=== PATIENT | female | born 1945 | race Caucasian/White ===

== ENCOUNTER 2018-06-07 22:13 | Inpatient (IN) ==
[2018-06-07] MEDS ORDERED: SODIUM CHLORIDE 0.9% 1,000 ML IV STA (22:40)
[2018-06-07 23:07] LABS: Basophils % 0.2 % (0.0-0.8); Eosinophils # 0.1 10*3/uL (0.0-0.87); Eosinophils % 1.1 % (0.00-10.9); Hematocrit 36.8 VOL% (35.7-47.0); Hemoglobin 12.5 GM/DL (12.0-16.0); Immature Granulocytes % 0.4 %; Immature Granulocytes Absolute 0.04 #; Lymphocytes # 1.6 10*3/uL (1.4-4.0); Lymphocytes % 17.4 % (21.3-54.2); Mean Corpuscular Hemoglobin 31 PG (27-34); Mean Corpuscular Volume 91.3 FL (87-102); Mean Platelet Volume 9.3 FL (9.6-12.0); Monocytes % 11.1 % (1.7-12.7); Neutrophils # 6.5 10*3/uL (1.4-7.4); Neutrophils % 69.8 % (38.7-73.9); Platelet Count 168 T/CUMM (130-400); Red Blood Count 4.03 MC/CUMM (3.8-5.5); Red Cell Distribution Width 13.2 % (9.3-17.3); White Blood Count 9.3 T/CUMM (4-12)
[2018-06-07 23:37] LABS: Alanine Aminotransferase 13 U/L (13-56); Albumin 3.2 G/DL (3.4-5.0); Alkaline Phosphatase 62 U/L (45-117); Aspartate Amino Transferase 20 U/L (0-37); Blood Urea Nitrogen 14 MG/DL (7-18); Calcium 8.8 MG/DL (8.5-10.1); Glucose 154 MG/DL (74-106); Osmolality,Calculated 280.5 MOS/KG (273-304); Potassium 2.9 MMOL/L (3.5-5.1); Sodium 139 MMOL/L (136-145); Total Protein 7.6 G/DL (6.4-8.3)
[2018-06-08 00:50] LABS: Apearance,Urine CLOUDY (Clear); Bacteria,Urine Moderate /HPF (Few); Bilirubin,Urine Negative (Negative); Blood, Urine Moderate mg/dL (Negative); Glucose,Urine (UA) Negative (Negative); Hyaline Casts,Urine 47 /LPF (0-3); Ketones,Urine 5 mg/dL (Negative); Mucus,Urine Moderate /LPF (Occasional); Nitrite,Urine Negative (Negative); Protein,Urine 30 MG/DL; RBC,Urine 16 /HPF (0-4); Squamous Epithelial Cell,Urine Occasional /HPF (0-10); Urine Color Amber (Yellow); Urine Specific Gravity 1.016 (1.001-1.035); WBC,Urine 258 /HPF (0-6)
[2018-06-08] MEDS ORDERED: cefTRIAXone 1,000 MG in SODIUM CHLORIDE 0.9% 100 ML IV STA (00:58)
[2018-06-08] MEDS ORDERED: ONDANSETRON 4 MG/2 ML VIAL IV PRN (01:37)
[2018-06-08] MEDS ORDERED: MAGNESIUM SULF RIDER 1 GM in PREMIX 1 EACH IV ONE (02:30)
[2018-06-08] MEDS: SODIUM CHLORIDE 0.9% 1,000 ML IV SCH ×3 (03:32→18:30)
[2018-06-08] MEDS: POTASSIUM CHLORIDE RIDER 10 MEQ in PREMIX 1 EACH IV SCH ×5 (03:34→12:10)
[2018-06-08 03:46] LABS: Barbiturates Screen,Urine Negative (Negative); Benzodiazepines Screen,Urine Negative (Negative); Cannabinoid Screen,Urine Negative (Negative); Opiate Screen,Urine Negative (Negative); Phencyclidine Screen,Urine Negative (Negative)
[2018-06-08 03:55] LABS: Free T4 (Free Thyroxine) 1.35 NG/DL (0.76-1.46)
[2018-06-08 05:52] LABS: Basophils % 0.2 % (0.0-0.8); Eosinophils # 0.2 10*3/uL (0.0-0.87); Eosinophils % 1.8 % (0.00-10.9); Hematocrit 33.5 VOL% (35.7-47.0); Hemoglobin 11.2 GM/DL (12.0-16.0); Immature Granulocytes % 0.4 %; Immature Granulocytes Absolute 0.03 #; Lymphocytes % 24.2 % (21.3-54.2); Mean Corpuscular HGB Conc 33.4 GM/DL (32-36); Mean Corpuscular Hemoglobin 31 PG (27-34); Mean Corpuscular Volume 92.5 FL (87-102); Mean Platelet Volume 9.5 FL (9.6-12.0); Monocytes # 0.9 10*3/uL (0.11-0.8); Monocytes % 10.9 % (1.7-12.7); Neutrophils # 5.2 10*3/uL (1.4-7.4); Neutrophils % 62.5 % (38.7-73.9); Platelet Count 149 T/CUMM (130-400); Red Blood Count 3.62 MC/CUMM (3.8-5.5); Red Cell Distribution Width 12.9 % (9.3-17.3); White Blood Count 8.3 T/CUMM (4-12)
[2018-06-08 06:02] LABS: Calcium 8.4 MG/DL (8.5-10.1); Osmolality,Calculated 281.1 MOS/KG (273-304)
[2018-06-08] MEDS: PANTOPRAZOLE 40 MG TABLET PO SCH (09:27)
[2018-06-08] MEDS: ENOXAPARIN 40 MG/0.4 ML SYRINGE SUBCUT SCH (09:27)
[2018-06-08] MEDS: MONTELUKAST 10 MG TABLET PO SCH (09:28)
[2018-06-08] MEDS: PROPRANOLOL LA 80 MG CAPSULE PO SCH (12:28)
[2018-06-09] MEDS: SODIUM CHLORIDE 0.9% 1,000 ML IV SCH (02:15)
[2018-06-09] MEDS: cefTRIAXone 1,000 MG in SYRINGE 1 EACH IV SCH (02:47)
[2018-06-09 04:50] LABS: Calcium 8.3 MG/DL (8.5-10.1); Osmolality,Calculated 279.1 MOS/KG (273-304); Potassium 3.6 MMOL/L (3.5-5.1)
[2018-06-09] MEDS: MONTELUKAST 10 MG TABLET PO SCH (08:08)
[2018-06-09] MEDS: LISINOPRIL 10 MG TABLET PO SCH (08:08)
[2018-06-09] MEDS: PROPRANOLOL LA 80 MG CAPSULE PO SCH (08:08)
[2018-06-09] MEDS: MAGNESIUM CHLORIDE 64 MG TABLET PO SCH (08:08)
[2018-06-09] MEDS: ENOXAPARIN 40 MG/0.4 ML SYRINGE SUBCUT SCH (08:08)
[2018-06-09] MEDS: POTASSIUM CHLORIDE 20 MEQ TABLET PO SCH (08:08)
[2018-06-09] MEDS: PANTOPRAZOLE 40 MG TABLET PO SCH (08:08)
[2018-06-09] MEDS ORDERED: TUBERCULIN SKIN TEST 0.1 ML SYRINGE INTRADERM ONE (12:31)
[2018-06-10] MEDS: cefTRIAXone 1,000 MG in SYRINGE 1 EACH IV SCH (03:09)
[2018-06-10 04:50] LABS: Calcium 8.6 MG/DL (8.5-10.1); Osmolality,Calculated 276.4 MOS/KG (273-304); Potassium 3.2 MMOL/L (3.5-5.1)
[2018-06-10] MEDS ORDERED: POTASSIUM CHLORIDE 10 MEQ TABLET PO ONE (08:30)
[2018-06-10] MEDS: ENOXAPARIN 40 MG/0.4 ML SYRINGE SUBCUT SCH (08:31)
[2018-06-10] MEDS: POTASSIUM CHLORIDE 20 MEQ TABLET PO SCH (08:32)
[2018-06-10] MEDS: PANTOPRAZOLE 40 MG TABLET PO SCH (08:32)
[2018-06-10] MEDS: MAGNESIUM CHLORIDE 64 MG TABLET PO SCH (08:32)
[2018-06-10] MEDS: LISINOPRIL 10 MG TABLET PO SCH ×2 (08:32→20:32)
[2018-06-10] MEDS: MONTELUKAST 10 MG TABLET PO SCH (08:32)
[2018-06-10] MEDS: PROPRANOLOL LA 80 MG CAPSULE PO SCH (08:36)
[2018-06-10] MEDS ORDERED: POTASSIUM CHLORIDE 20 MEQ/15 ML UDCUP PO ONE (09:07)
[2018-06-10] MEDS: ACETAMINOPHEN 325 MG TABLET PO PRN ×2 (09:52→20:32)
[2018-06-10] MEDS: POTASSIUM CHLORIDE 20 MEQ/15 ML UDCUP PO SCH (09:52)
[2018-06-10] MEDS ORDERED: ALBUTEROL 2.5 MG/3 ML NEB RESP TX PRN (15:45)
[2018-06-10] MEDS: DULoxetine 30 MG CAPSULE PO SCH (20:32)
[2018-06-10] MEDS: BENZTROPINE 1 MG TABLET PO SCH (20:32)
[2018-06-11] MEDS: cefTRIAXone 1,000 MG in SYRINGE 1 EACH IV SCH (02:00)
[2018-06-11 06:08] LABS: Calcium 8.9 MG/DL (8.5-10.1); Osmolality,Calculated 274.5 MOS/KG (273-304); Potassium 3.3 MMOL/L (3.5-5.1)
[2018-06-11 06:10] LABS: Calcium 8.9 MG/DL (8.5-10.1); Osmolality,Calculated 274.5 MOS/KG (273-304); Potassium 3.3 MMOL/L (3.5-5.1)
[2018-06-11] MEDS ORDERED: POTASSIUM CHLORIDE 20 MEQ/15 ML UDCUP PO ONE (08:16)
[2018-06-11] MEDS: ENOXAPARIN 40 MG/0.4 ML SYRINGE SUBCUT SCH (08:39)
[2018-06-11] MEDS: MAGNESIUM CHLORIDE 64 MG TABLET PO SCH (08:40)
[2018-06-11] MEDS: PANTOPRAZOLE 40 MG TABLET PO SCH (08:40)
[2018-06-11] MEDS: MONTELUKAST 10 MG TABLET PO SCH (08:40)
[2018-06-11] MEDS: LISINOPRIL 10 MG TABLET PO SCH ×2 (08:40→21:25)
[2018-06-11] MEDS: OXYBUTYNIN XL 5 MG TABLET PO SCH (08:40)
[2018-06-11] MEDS: POTASSIUM CHLORIDE 20 MEQ/15 ML UDCUP PO SCH (08:40)
[2018-06-11] MEDS ORDERED: PROPRANOLOL LA 80 MG CAPSULE PO SCH (09:00)
[2018-06-11] MEDS: PROPRANOLOL LA 80 MG CAPSULE PO SCH (10:00)
[2018-06-11] MEDS ORDERED: TEMAZEPAM 15 MG CAPSULE PO SCH (21:00)
[2018-06-11] MEDS: DULoxetine 30 MG CAPSULE PO SCH (21:25)
[2018-06-11] MEDS: BENZTROPINE 1 MG TABLET PO SCH (21:27)
[2018-06-12] MEDS: cefTRIAXone 1,000 MG in SYRINGE 1 EACH IV SCH (02:13)
[2018-06-12] MEDS: ACETAMINOPHEN 325 MG TABLET PO PRN ×2 (03:03→11:58)
[2018-06-12 05:23] LABS: Calcium 8.6 MG/DL (8.5-10.1); Osmolality,Calculated 275.5 MOS/KG (273-304); Potassium 3.3 MMOL/L (3.5-5.1)
[2018-06-12] MEDS: PANTOPRAZOLE 40 MG TABLET PO SCH (09:13)
[2018-06-12] MEDS: POTASSIUM CHLORIDE 20 MEQ/15 ML UDCUP PO SCH (09:13)
[2018-06-12] MEDS: MONTELUKAST 10 MG TABLET PO SCH (09:13)
[2018-06-12] MEDS: ENOXAPARIN 40 MG/0.4 ML SYRINGE SUBCUT SCH (09:13)
[2018-06-12] MEDS: MAGNESIUM CHLORIDE 64 MG TABLET PO SCH (09:13)
[2018-06-12] MEDS: PROPRANOLOL LA 80 MG CAPSULE PO SCH (09:14)
[2018-06-12] MEDS: LISINOPRIL 10 MG TABLET PO SCH ×2 (09:14→20:34)
[2018-06-12] MEDS: OXYBUTYNIN XL 5 MG TABLET PO SCH (09:14)
[2018-06-12] MEDS ORDERED: POTASSIUM CHLORIDE 20 MEQ/15 ML UDCUP PO ONE (09:58)
[2018-06-12] MEDS ORDERED: MAGNESIUM SULF RIDER 2 GM in PREMIX 1 EACH IV ONE (09:58)
[2018-06-12] MEDS: AMOXICILLIN/CLAV 875 MG TABLET PO SCH ×2 (11:50→20:34)
[2018-06-12] MEDS: DULoxetine 30 MG CAPSULE PO SCH (20:33)
[2018-06-12] MEDS: BENZTROPINE 1 MG TABLET PO SCH (20:34)
[2018-06-12] MEDS ORDERED: LORazepam 1 MG TABLET PO SCH (21:00)
[2018-06-13 05:40] LABS: Calcium 8.3 MG/DL (8.5-10.1); Osmolality,Calculated 276.5 MOS/KG (273-304); Potassium 3.4 MMOL/L (3.5-5.1)
[2018-06-13] MEDS: MAGNESIUM CHLORIDE 64 MG TABLET PO SCH (10:00)
[2018-06-13] MEDS: POTASSIUM CHLORIDE 20 MEQ/15 ML UDCUP PO SCH (10:00)
[2018-06-13] MEDS: LISINOPRIL 10 MG TABLET PO SCH ×2 (10:00→21:05)
[2018-06-13] MEDS: ENOXAPARIN 40 MG/0.4 ML SYRINGE SUBCUT SCH (10:00)
[2018-06-13] MEDS: AMOXICILLIN/CLAV 875 MG TABLET PO SCH ×2 (10:06→21:05)
[2018-06-13] MEDS: PANTOPRAZOLE 40 MG TABLET PO SCH (10:07)
[2018-06-13] MEDS: MONTELUKAST 10 MG TABLET PO SCH (10:07)
[2018-06-13] MEDS: PROPRANOLOL LA 80 MG CAPSULE PO SCH (10:08)
[2018-06-13] MEDS: OXYBUTYNIN XL 5 MG TABLET PO SCH (10:08)
[2018-06-13 14:31] LABS: HIV Antigen/Antibody Result Nonreactive (Nonreactive); Hepatitis A Ab IgM Quant 0.22 Index; Hepatitis A Ab IgM Result Negative (Negative); Hepatitis B Core IgM Quant 0.13 Index; Hepatitis B Core IgM Result Negative (Negative); Hepatitis B Surface Ag Quant 0.47 Index; Hepatitis B Surface Ag Result Negative (Negative); Hepatitis C Virus Ab Quant 0.09 Index; Hepatitis C Virus Ab Result Negative (Negative)
[2018-06-13 14:46] LABS: Cancer Antigen 19-9 1.8 U/ML (0-37); Carcinoembryonic Antigen 2.7 NG/ML (0.0-5.0)
[2018-06-13] MEDS: DULoxetine 30 MG CAPSULE PO SCH (21:05)
[2018-06-13] MEDS: BENZTROPINE 1 MG TABLET PO SCH (21:05)
[2018-06-14 04:41] LABS: Calcium 8.4 MG/DL (8.5-10.1); Osmolality,Calculated 277.4 MOS/KG (273-304); Potassium 3.9 MMOL/L (3.5-5.1)
[2018-06-14] MEDS: ACETAMINOPHEN 325 MG TABLET PO PRN (05:37)
[2018-06-14] MEDS: AMOXICILLIN/CLAV 875 MG TABLET PO SCH (08:19)
[2018-06-14] MEDS: LISINOPRIL 10 MG TABLET PO SCH (08:19)
[2018-06-14] MEDS: OXYBUTYNIN XL 5 MG TABLET PO SCH (08:19)
[2018-06-14] MEDS: MAGNESIUM CHLORIDE 64 MG TABLET PO SCH (08:19)
[2018-06-14] MEDS: PANTOPRAZOLE 40 MG TABLET PO SCH (08:19)
[2018-06-14] MEDS: ENOXAPARIN 40 MG/0.4 ML SYRINGE SUBCUT SCH (08:20)
[2018-06-14] MEDS: MONTELUKAST 10 MG TABLET PO SCH (08:20)
[2018-06-14] MEDS: POTASSIUM CHLORIDE 20 MEQ/15 ML UDCUP PO SCH (08:20)
[2018-06-14] MEDS: PROPRANOLOL LA 80 MG CAPSULE PO SCH (08:34)
[2018-06-14 09:01] LABS: Free T4 (Free Thyroxine) 1.1 NG/DL (0.76-1.46)
[2018-06-14 15:56] VITALS: BP 94/74
== END 2018-06-14 17:00 | disposition swing bed (61) | DRG 690 ==
LOC: N.ED 22:13 → N.EDINP 22:13 → SUATTDRO 06-08 01:37 → N.4E 06-08 02:06 → N.3E 06-08 02:16
PROVIDERS: ADMIT Internal Medicine; ATTEND Internal Medicine

== ENCOUNTER 2018-10-08 19:59 | Inpatient (IN) ==
[2018-10-08] MEDS ORDERED: SODIUM CHLORIDE 0.9% 1,000 ML IV STA (20:23)
[2018-10-08] MEDS ORDERED: SODIUM CHLORIDE 0.9% 2,000 ML IV STA (20:49)
[2018-10-08 21:28] LABS: Alanine Aminotransferase 27 U/L (13-56); Albumin 3.9 G/DL (3.4-5.0); Alkaline Phosphatase 76 U/L (45-117); Aspartate Amino Transferase 27 U/L (0-37); Blood Urea Nitrogen 47 MG/DL (7-18); Calcium 10.2 MG/DL (8.5-10.1); Glucose 125 MG/DL (74-106); Total Protein 7.8 G/DL (6.4-8.3)
[2018-10-08 21:44] LABS: Apearance,Urine CLOUDY (Clear); Bacteria,Urine Many /HPF (Few); Bilirubin,Urine Negative (Negative); Blood, Urine Negative (Negative); Glucose,Urine (UA) Negative (Negative); Ketones,Urine 20 mg/dL (Negative); Mucus,Urine Many /LPF (Occasional); Nitrite,Urine Positive (Negative); Protein,Urine 100 MG/DL; RBC,Urine 21 /HPF (0-4); Urine Color Yellow (Yellow); Urine Specific Gravity 1.023 (1.001-1.035); WBC,Urine 245 /HPF (0-6)
[2018-10-08 21:55] LABS: Basophils % 0.2 % (0.0-0.8); Eosinophils % 0.1 % (0.00-10.9); Hematocrit 40.1 VOL% (35.7-47.0); Hemoglobin 13.4 GM/DL (12.0-16.0); Immature Granulocytes % 0.5 %; Immature Granulocytes Absolute 0.09 #; Lymphocytes % 5.8 % (21.3-54.2); Mean Corpuscular HGB Conc 33.4 GM/DL (32-36); Mean Corpuscular Volume 92.8 FL (87-102); Mean Platelet Volume 9.9 FL (9.6-12.0); Monocytes % 7.7 % (1.7-12.7); Neutrophils % 85.7 % (38.7-73.9); Platelet Count 224 T/CUMM (130-400); Red Blood Count 4.32 MC/CUMM (3.8-5.5); Red Cell Distribution Width 13.3 % (9.3-17.3); White Blood Count 16.6 T/CUMM (4-12)
[2018-10-08] MEDS ORDERED: cefTRIAXone 1,000 MG in SODIUM CHLORIDE 0.9% 100 ML IV STA (22:06)
[2018-10-08 22:25] LABS: Barbiturates Screen,Urine Negative (Negative); Benzodiazepines Screen,Urine Negative (Negative); Cannabinoid Screen,Urine Negative (Negative); Opiate Screen,Urine Negative (Negative); Phencyclidine Screen,Urine Negative (Negative)
[2018-10-08 22:27] LABS: Anisocytosis Slight; Platelet Estimate Adequate
[2018-10-09] MEDS ORDERED: ONDANSETRON 4 MG/2 ML VIAL IV PRN (03:02)
[2018-10-09 06:26] LABS: Albumin 3.2 G/DL (3.4-5.0); Bilirubin,Total 1.5 MG/DL (0.2-1.0); Calcium 8.5 MG/DL (8.5-10.1); Osmolality,Calculated 310.6 MOS/KG (273-304); Total Protein 6.7 G/DL (6.4-8.3)
[2018-10-09] MEDS: ENOXAPARIN 40 MG/0.4 ML SYRINGE SUBCUT SCH (06:32)
[2018-10-09] MEDS: LEVOTHYROXINE 50 MCG TABLET PO SCH (06:32)
[2018-10-09] MEDS: DEXTROSE 5% 1,000 ML IV SCH ×2 (06:32→18:17)
[2018-10-09 08:17] LABS: Basophils % 0.2 % (0.0-0.8); Eosinophils % 0.3 % (0.00-10.9); Hematocrit 36.6 VOL% (35.7-47.0); Hemoglobin 12.2 GM/DL (12.0-16.0); Immature Granulocytes % 0.3 %; Immature Granulocytes Absolute 0.04 #; Lymphocytes # 1.5 10*3/uL (1.4-4.0); Lymphocytes % 12.8 % (21.3-54.2); Mean Corpuscular HGB Conc 33.3 GM/DL (32-36); Mean Corpuscular Volume 93.8 FL (87-102); Mean Platelet Volume 10.5 FL (9.6-12.0); Monocytes % 8.6 % (1.7-12.7); Neutrophils % 77.8 % (38.7-73.9); Platelet Count 172 T/CUMM (130-400); Red Cell Distribution Width 13.5 % (9.3-17.3); White Blood Count 11.8 T/CUMM (4-12)
[2018-10-09] MEDS: MONTELUKAST 10 MG TABLET PO SCH (09:00)
[2018-10-09] MEDS: PANTOPRAZOLE 40 MG TABLET PO SCH (09:01)
[2018-10-09] MEDS: PROPRANOLOL LA 80 MG CAPSULE PO SCH (09:16)
[2018-10-09] MEDS: ACETAMINOPHEN 325 MG TABLET PO PRN ×2 (09:16→22:05)
[2018-10-09 16:12] LABS: Calcium 8.1 MG/DL (8.5-10.1); Osmolality,Calculated 286.1 MOS/KG (273-304)
[2018-10-09] MEDS ORDERED: POTASSIUM CHLORIDE RIDER 20 MEQ in PREMIX 1 EACH IV PRN (16:29)
[2018-10-09] MEDS: DEXTROSE 5% KCL 20 MEQ 20 MEQ/1,000 ML BAG IV SCH (17:31)
[2018-10-09] MEDS: POTASSIUM CHLORIDE RIDER 10 MEQ in PREMIX 1 EACH IV PRN ×2 (17:31→18:58)
[2018-10-09] MEDS: cefTRIAXone 1,000 MG in SYRINGE 1 EACH IV SCH (22:00)
[2018-10-09] MEDS: DULoxetine 30 MG CAPSULE PO SCH (22:05)
[2018-10-09] MEDS: BENZTROPINE 1 MG TABLET PO SCH (22:05)
[2018-10-10] MEDS: DEXTROSE 5% KCL 20 MEQ 20 MEQ/1,000 ML BAG IV SCH ×3 (01:42→17:27)
[2018-10-10] MEDS: POTASSIUM CHLORIDE RIDER 10 MEQ in PREMIX 1 EACH IV PRN ×4 (01:45→14:48)
[2018-10-10 03:09] LABS: Basophils % 0.2 % (0.0-0.8); Eosinophils # 0.2 10*3/uL (0.0-0.87); Eosinophils % 2.2 % (0.00-10.9); Hemoglobin 10.2 GM/DL (12.0-16.0); Immature Granulocytes % 0.4 %; Immature Granulocytes Absolute 0.03 #; Lymphocytes # 1.7 10*3/uL (1.4-4.0); Lymphocytes % 20.6 % (21.3-54.2); Mean Corpuscular Volume 90.4 FL (87-102); Mean Platelet Volume 10.6 FL (9.6-12.0); Neutrophils % 68.6 % (38.7-73.9); Platelet Count 138 T/CUMM (130-400); Red Blood Count 3.32 MC/CUMM (3.8-5.5); Red Cell Distribution Width 12.8 % (9.3-17.3); White Blood Count 8.3 T/CUMM (4-12)
[2018-10-10 03:40] LABS: Albumin 2.7 G/DL (3.4-5.0); Bilirubin,Total 0.7 MG/DL (0.2-1.0); Osmolality,Calculated 282.3 MOS/KG (273-304); Total Protein 5.7 G/DL (6.4-8.3)
[2018-10-10] MEDS: ENOXAPARIN 40 MG/0.4 ML SYRINGE SUBCUT SCH (03:56)
[2018-10-10] MEDS: LEVOTHYROXINE 50 MCG TABLET PO SCH (05:06)
[2018-10-10] MEDS: ACETAMINOPHEN 325 MG TABLET PO PRN ×2 (05:06→20:39)
[2018-10-10] MEDS: PROPRANOLOL LA 80 MG CAPSULE PO SCH (08:55)
[2018-10-10] MEDS: PANTOPRAZOLE 40 MG TABLET PO SCH (08:57)
[2018-10-10] MEDS: MONTELUKAST 10 MG TABLET PO SCH (08:59)
[2018-10-10] MEDS ORDERED: SIMETHICONE CHEW 125 MG TABLET PO PRN (16:08)
[2018-10-10] MEDS: DULoxetine 30 MG CAPSULE PO SCH (20:38)
[2018-10-10] MEDS: BENZTROPINE 1 MG TABLET PO SCH (20:38)
[2018-10-10] MEDS: cefTRIAXone 1,000 MG in SYRINGE 1 EACH IV SCH (20:45)
[2018-10-11] MEDS: DEXTROSE 5% KCL 20 MEQ 20 MEQ/1,000 ML BAG IV SCH ×3 (03:06→18:23)
[2018-10-11] MEDS: ENOXAPARIN 40 MG/0.4 ML SYRINGE SUBCUT SCH (03:07)
[2018-10-11 04:47] LABS: Basophils % 0.3 % (0.0-0.8); Eosinophils # 0.3 10*3/uL (0.0-0.87); Eosinophils % 4.5 % (0.00-10.9); Hematocrit 31.9 VOL% (35.7-47.0); Hemoglobin 10.6 GM/DL (12.0-16.0); Immature Granulocytes % 0.3 %; Immature Granulocytes Absolute 0.02 #; Lymphocytes # 1.3 10*3/uL (1.4-4.0); Lymphocytes % 18.5 % (21.3-54.2); Mean Corpuscular HGB Conc 33.2 GM/DL (32-36); Mean Corpuscular Volume 91.7 FL (87-102); Mean Platelet Volume 10.8 FL (9.6-12.0); Monocytes % 8.3 % (1.7-12.7); Neutrophils % 68.1 % (38.7-73.9); Platelet Count 129 T/CUMM (130-400); Red Blood Count 3.48 MC/CUMM (3.8-5.5); Red Cell Distribution Width 12.7 % (9.3-17.3); White Blood Count 6.9 T/CUMM (4-12)
[2018-10-11 05:09] LABS: Albumin 2.5 G/DL (3.4-5.0); Bilirubin,Total 0.5 MG/DL (0.2-1.0); Osmolality,Calculated 276.4 MOS/KG (273-304); Total Protein 5.4 G/DL (6.4-8.3)
[2018-10-11] MEDS: LEVOTHYROXINE 50 MCG TABLET PO SCH (06:41)
[2018-10-11] MEDS: PROPRANOLOL LA 80 MG CAPSULE PO SCH (09:30)
[2018-10-11] MEDS: MONTELUKAST 10 MG TABLET PO SCH (09:36)
[2018-10-11] MEDS: PANTOPRAZOLE 40 MG TABLET PO SCH (09:36)
[2018-10-11] MEDS: cefTRIAXone 1,000 MG in SYRINGE 1 EACH IV SCH (20:32)
[2018-10-11] MEDS: DULoxetine 30 MG CAPSULE PO SCH (20:33)
[2018-10-11] MEDS: BENZTROPINE 1 MG TABLET PO SCH (20:34)
[2018-10-11] MEDS: ACETAMINOPHEN 325 MG TABLET PO PRN (23:41)
[2018-10-12] MEDS: DEXTROSE 5% KCL 20 MEQ 20 MEQ/1,000 ML BAG IV SCH ×3 (02:23→17:55)
[2018-10-12] MEDS: ENOXAPARIN 40 MG/0.4 ML SYRINGE SUBCUT SCH (03:02)
[2018-10-12] MEDS: LEVOTHYROXINE 50 MCG TABLET PO SCH (05:50)
[2018-10-12] MEDS: MONTELUKAST 10 MG TABLET PO SCH (09:33)
[2018-10-12] MEDS: PANTOPRAZOLE 40 MG TABLET PO SCH (09:33)
[2018-10-12] MEDS: PROPRANOLOL LA 80 MG CAPSULE PO SCH (09:34)
[2018-10-12] MEDS: BENZTROPINE 1 MG TABLET PO SCH (21:14)
[2018-10-12] MEDS: cefTRIAXone 1,000 MG in SYRINGE 1 EACH IV SCH (21:14)
[2018-10-12] MEDS: DULoxetine 30 MG CAPSULE PO SCH (21:14)
[2018-10-13] MEDS: DEXTROSE 5% KCL 20 MEQ 20 MEQ/1,000 ML BAG IV SCH ×3 (01:45→21:39)
[2018-10-13] MEDS: ENOXAPARIN 40 MG/0.4 ML SYRINGE SUBCUT SCH (03:00)
[2018-10-13 05:06] LABS: Basophils % 0.3 % (0.0-0.8); Eosinophils # 0.2 10*3/uL (0.0-0.87); Eosinophils % 3.6 % (0.00-10.9); Hematocrit 32.3 VOL% (35.7-47.0); Hemoglobin 10.9 GM/DL (12.0-16.0); Immature Granulocytes % 0.3 %; Immature Granulocytes Absolute 0.02 #; Lymphocytes # 1.4 10*3/uL (1.4-4.0); Lymphocytes % 21.6 % (21.3-54.2); Mean Corpuscular HGB Conc 33.7 GM/DL (32-36); Mean Corpuscular Volume 92.3 FL (87-102); Mean Platelet Volume 10.7 FL (9.6-12.0); Monocytes % 9.3 % (1.7-12.7); Neutrophils % 64.9 % (38.7-73.9); Platelet Count 143 T/CUMM (130-400); Red Cell Distribution Width 12.9 % (9.3-17.3); White Blood Count 6.7 T/CUMM (4-12)
[2018-10-13 05:33] LABS: Alanine Aminotransferase 21 U/L (13-56); Albumin 2.6 G/DL (3.4-5.0); Alkaline Phosphatase 67 U/L (45-117); Aspartate Amino Transferase 20 U/L (0-37); Bilirubin,Total < 0.39 MG/DL (0.2-1.0); Blood Urea Nitrogen 7 MG/DL (7-18); Calcium 8.5 MG/DL (8.5-10.1); Glucose 114 MG/DL (74-106); Osmolality,Calculated 277.4 MOS/KG (273-304); Total Protein 5.9 G/DL (6.4-8.3)
[2018-10-13] MEDS: LEVOTHYROXINE 50 MCG TABLET PO SCH (05:53)
[2018-10-13] MEDS: PROPRANOLOL LA 80 MG CAPSULE PO SCH (09:01)
[2018-10-13] MEDS: MONTELUKAST 10 MG TABLET PO SCH (09:01)
[2018-10-13] MEDS: PANTOPRAZOLE 40 MG TABLET PO SCH (09:01)
[2018-10-13] MEDS: BACITRACIN OINT 0.9 GM PACK TOP SCH (16:37)
[2018-10-13] MEDS: DULoxetine 30 MG CAPSULE PO SCH (21:39)
[2018-10-13] MEDS: cefTRIAXone 1,000 MG in SYRINGE 1 EACH IV SCH (21:40)
[2018-10-13] MEDS: BENZTROPINE 1 MG TABLET PO SCH (21:40)
[2018-10-13] MEDS: ACETAMINOPHEN 325 MG TABLET PO PRN (21:40)
[2018-10-14] MEDS: ENOXAPARIN 40 MG/0.4 ML SYRINGE SUBCUT SCH (03:11)
[2018-10-14] MEDS: LEVOTHYROXINE 50 MCG TABLET PO SCH (05:21)
[2018-10-14] MEDS: DEXTROSE 5% KCL 20 MEQ 20 MEQ/1,000 ML BAG IV SCH (05:21)
[2018-10-14] MEDS: PROPRANOLOL LA 80 MG CAPSULE PO SCH (08:50)
[2018-10-14] MEDS: MONTELUKAST 10 MG TABLET PO SCH (08:50)
[2018-10-14] MEDS: BACITRACIN OINT 0.9 GM PACK TOP SCH (08:50)
[2018-10-14] MEDS: PANTOPRAZOLE 40 MG TABLET PO SCH (08:50)
[2018-10-14 11:54] VITALS: BP 102/58
[2018-10-14] MEDS ORDERED: CEFUROXIME 250 MG TABLET PO SCH (12:00)
== END 2018-10-14 15:11 | disposition home health service (06) | DRG 683 ==
LOC: EDUNIT# → EDBD → N.ED 19:59 → N.EDINP 10-09 03:02 → N.5E 10-09 03:46